=== PATIENT | male | born 1965 | race Caucasian/White ===

== ENCOUNTER 2022-01-20 08:42 | Emergency (ER) | payer MEDICARE ==
[~2022-01-20] VITALS: Ht 182.9 cm; Wt 115.9 kg
[2022-01-20 08:48] VITALS: BP 181/100
[2022-01-20] MEDS ORDERED: LIDOcaine 5% patch TP PRN (09:10)
== END 2022-01-20 09:16 | disposition home or self-care (01) ==
LOC: ER 08:42
DX: S39.012A Strain of muscle, fascia and tendon of lower back, initial encounter (principal); M54.89 Other dorsalgia; E11.42 Type 2 diabetes mellitus with diabetic polyneuropathy; X58.XXXA Exposure to other specified factors, initial encounter; Y93.89 Activity, other specified; Y92.89 Other specified places as the place of occurrence of the external cause; Y99.8 Other external cause status
CPT/HCPCS: 82948; 99282

== ENCOUNTER 2022-03-16 09:07 | Emergency (ER) | payer MEDICARE ==
[~2022-03-16] VITALS: Ht 182.9 cm; Wt 113.6 kg
[2022-03-16 11:26] VITALS: BP 123/66
== END 2022-03-16 11:50 | disposition home or self-care (01) ==
LOC: ER 09:07
DX: S90.921A Unspecified superficial injury of right foot, initial encounter (principal); S90.935A Unspecified superficial injury of left lesser toe(s), initial encounter; E11.69 Type 2 diabetes mellitus with other specified complication; G62.9 Polyneuropathy, unspecified; X58.XXXA Exposure to other specified factors, initial encounter; Y93.89 Activity, other specified; Y92.89 Other specified places as the place of occurrence of the external cause; Y99.8 Other external cause status
CPT/HCPCS: 99282; A6258; A6449; L3260

== ENCOUNTER 2024-06-24 07:30 | Emergency (ER) | payer MEDICARE ==
[~2024-06-24] VITALS: Ht 182.9 cm; Wt 112.0 kg
[2024-06-24 08:07] LABS: BASOPHILS % (AUTO) 0.4 % (0-1); EOSINOPHILS % (AUTO) 0.3 % (0-6); HEMATOCRIT 39.2 % (42.0-52.0); HEMOGLOBIN 13.5 g/dl (14.0-17.9); LYMPHOCYTES # (AUTO) 0.7 X10'3 (1.1-4.8); LYMPHOCYTES % (AUTO) 7.7 % (21-51); MEAN CORPUSCULAR HEMOGLOBIN 34.5 PG (27.0-31.0); MEAN CORPUSCULAR HGB CONC 34.3 g/dL (33.0-36.5); MEAN CORPUSCULAR VOLUME 100.5 FL (78-98); MEAN PLATELET VOLUME 6.9 FL (7.4-10.4); MONOCYTES # (AUTO) 0.7 X10'3 (0-0.9); MONOCYTES % (AUTO) 7.7 % (2-12); NEUTROPHILS # (AUTO) 7.3 X10'3 (1.8-7.7); NEUTROPHILS % (AUTO) 83.9 % (42-75); PLATELET COUNT 218 X10'3 (140-440); RED CELL DISTRIBUTION WIDTH 14.8 % (11.5-14.5); WHITE BLOOD COUNT 8.7 X10'3 (4.5-11.0)
[2024-06-24 08:20] LABS: ALANINE AMINOTRANSFERASE 45 U/L (12-78); ALBUMIN 3.3 G/DL (3.4-5.0); ALBUMIN/GLOBULIN RATIO 0.7 (1.1-1.5); ALKALINE PHOSPHATASE 58 IU/L (46-116); ANION GAP 19 (8-16); ASPARTATE AMINO TRANSFERASE 55 U/L (10-37); BLOOD UREA NITROGEN 25 MG/DL (7-18); BUN/CREATININE RATIO 10.2 (10.0-20.0); CALCIUM 9.2 MG/DL (8.5-10.1); CHLORIDE 93 MMOL/L (99-107); CREATININE 2.46 MG/DL (0.60-1.10); GLUCOSE 277 MG/DL (70-104); POTASSIUM 4.4 MMOL/L (3.5-5.1); SODIUM 132 MMOL/L (135-145); TOTAL CARBON DIOXIDE 19.6 MMOL/L (24-32); TOTAL PROTEIN 8.2 G/DL (6.4-8.2); eCRCL 35 ML/MIN; eGFR 27 ML/MIN
[2024-06-24 08:24] LABS: BILIRUBIN,URINE SMALL (Neg); CLARITY,URINE CLEAR (Clear); COLOR,URINE YELLOW (Yellow); GLUCOSE, URINE 500 mg/dl (Neg); KETONES,URINE >=80 mg/dl (Neg); LEUKOCYTE ESTERASE ,URINE NEGATIVE (Neg); NITRITES, URINE NEGATIVE (Neg); OCCULT BLOOD,URINE MODERATE (Neg); PROTEIN,URINE >=300 mg/dl (Neg); UROBILINOGEN,URINE 0.2 E.U/dL (0.2-1.0)
[2024-06-24 08:26] LABS: UA COLLECTION TYPE CLN CATCH MIDSTREAM
[2024-06-24 08:30] LABS: BACTERIA,URINE FEW /HPF (Neg); SQUAMOUS EPITHELIAL CELL,UR FEW /LPF (FEW); WBC,URINE 0-4 /HPF (0-4)
[2024-06-24 08:31] LABS: LIPASE 30 U/L (16-77); PRO BRAIN NATRIURETIC PEPTIDE 1299 PG/ML (0-125)
[2024-06-24 08:31] LABS: FINE GRANULAR CAST 0-3 /LPF (NEGATIVE); HYALINE CASTS 0-3 /LPF (NEGATIVE); MUCUS STRANDS FEW /LPF (Neg)
[2024-06-24 09:56] VITALS: TEMP 99.1
[2024-06-24] MEDS: HYDROmorphone 1 mg/ml syringe IV ONE (09:58)
[2024-06-24] MEDS: ondansetron/PF 4mg/2ml inj IV ONE (09:59)
[2024-06-24] MEDS ORDERED: ONDA-243 PO (12:16)
[2024-06-24 12:47] VITALS: BP 179/96; PULSE 94; RESP 16; O2SAT 98
== END 2024-06-24 12:49 | disposition home or self-care (01) ==
LOC: ER 07:30
DX: K52.9 Noninfective gastroenteritis and colitis, unspecified (principal); E86.0 Dehydration; E11.42 Type 2 diabetes mellitus with diabetic polyneuropathy
CPT/HCPCS: 36415; 71045; 74176; 80053; 81001; 82948; 83690; 83880; 84484; 85025; 93005; 96374; 96375; 99285; J1171; J2405